=== PATIENT | male | born 1950 | race Caucasian/White ===

== ENCOUNTER 2019-09-28 15:59 | Emergency (ER) | payer MEDICARE, OTHER ==
[2019-09-28] MEDS: EPINEPHrine 1:10,000 1 MG/10 ML Syringe IVPUSH PRN ×4 (16:00→16:08)
[2019-09-28] MEDS: Sodium Chloride 0.9% 10 ML Syringe FLUSH PRN ×2 (16:00→16:03)
--- NOTE | 2019-09-28 16:29 | EDM.PDOC ---
ED HPI GENERAL MEDICAL PROBLEM - General Chief Complaint: CPR in Progress Stated Complaint: INJURY Time Seen by Provider: 09/28/19 15:59 Source of Information: Reports: EMS, Family History Limitations: Reports: Other (Patient unresponsive) - History of Present Illness INITIAL COMMENTS - FREE TEXT/NARRATIVE: Patient was found laying next to a grain elevator unresponsive. Last known well is unknown. CPR initiated by bystanders, 911 called at 1456. EMS arrived on the scene at 1514, they placed a COCO chest compression system, inserted an intraosseous line in the right tibia, and provided ventilations by BVM. They administered a total of Epinephrine 5 mg IO and defibrillated x 4 via AED. Patient presents to the ED unresponsive in asystole. states he has not seen a doctor in 30 years, takes no medication, and has no diagnosis of any medical problems. Past Medical History - Past Health History Medical/Surgical History: Denies Medical/Surgical History ED ROS GENERAL - Review of Systems Review Of Systems: Unable To Obtain Reason Not Obtained: Unresponsive ED EXAM, CPR - Physical Exam Exam: See Below Limited By: Unresponsive General Appearance: Obtunded Eye Exam: Bilateral Eye: Other (Pupils 3 mm, nonreactive bilaterally) Throat/Mouth: Other (Oropharyngeal blood present) Head: Normocephalic, Other (Left periorbital ecchymosis, otherwise atraumatic) Neck: Other (C-collar placed in the ED) Respiratory Chest: Other (7.5 ETT tube placed by INSIDE SALES AGENT, lungs sounds equal bilaterally with ventilations) Cardiovascular: Absent Heart Sounds, CPR In Progress Extremities: Other (Right tibial IO in place) Neurological: Unresponsive Skin Exam: Other Course - Re-Assessments/Exams Free Text/Narrative Re-Assessment/Exam: 09/28/19 16:41 Patient intubated by INSIDE SALES AGENT. A total of Epinephrine 3mg IO and 1mg IV were given in the ED. Asystole persisted. Patient pronounced at 1609. Departure - Departure Time of Disposition: 16:09 Disposition: 20 Preliminary Cause of *Q: Cardiac Arrest Clinical Impression: Periorbital ecchymosis of left eye Qualifiers: Encounter type: initial encounter Qualified Code(s): S00.12XA - Contusion of left eyelid and periocular area, initial encounter - Discharge Information *PRESCRIPTION DRUG MONITORING PROGRAM REVIEWED*: No *COPY OF PRESCRIPTION DRUG MONITORING REPORT IN PATIENT JONA: Not Applicable Forms: ED Department Discharge
--- NOTE | 2019-09-28 16:31 | PCM.SN.2 ---
- Free Text/Narrative Note: Was called to ER in anticipation of a full code. Patient arrived shortly after by ambulance with reports of asystole for greater than 30 minutes. Paramedics unable to intubate or insert rescue airways due to trauma of face and head,bag mask ventilation being used,patient does ventilate. I intubated patient immediately with glidescope 3 noting blood in airway,suctioned used and a grade one view noted with visualization of tube passing between vocal cords Bilateral breath sounds with a CO2 of 22 noted. A 7.5 mm ET tube was used. After four rounds of CPR and and epinephrines given times 4,the code was called at 1610.
== END 2019-09-28 20:15 | disposition expired ==
LOC: FB.ED 15:59
DX: I46.9 Cardiac arrest, cause unspecified (principal); S00.83XA Contusion of other part of head, initial encounter; X58.XXXA Exposure to other specified factors, initial encounter
CPT/HCPCS: 31500; 92950; 96374; 99285-25; J0171